=== PATIENT | female | born 1990 | race African-American/Black ===

== ENCOUNTER 2021-03-11 20:45 | Emergency (ER) | payer BC, MEDICAID ==
[~2021-03-11] VITALS: Ht 180.3 cm; Wt 89.2 kg
[~2021-03-11 20:45] MED LIST: NONE REPORTED
[2021-03-11 21:03] VITALS: BP 105/61
[2021-03-11] MEDS ORDERED: ACETAMINOPHEN 325MG TABLET PO ONE (21:30)
[2021-03-11] MEDS ORDERED: PRENATAL VITAMINS (23:34)
[2021-03-11] MEDS ORDERED: FOLIC ACID (23:34)
== END 2021-03-11 22:12 | disposition home or self-care (01) ==
LOC: ER 20:45
DX: B34.9 Viral infection, unspecified (principal); Z20.822 Contact with and (suspected) exposure to COVID-19
CPT/HCPCS: 87426; 87804; 99283; C9803; U0003; U0005

== ENCOUNTER 2021-03-11 22:30 | Observation (INO) | payer MEDICAID ==
[~2021-03-11] VITALS: Ht 180.3 cm; Wt 88.9 kg
[2021-03-11] MEDS ORDERED: FOLIC ACID (23:34)
[2021-03-11] MEDS ORDERED: PRENATAL VITAMINS (23:34)
== END 2021-03-12 00:06 | disposition home or self-care (01) ==
LOC: 8 EST LDRP 22:30
PROVIDERS: ADMIT Specialist; ATTEND Specialist
DX: O26.893 Other specified pregnancy related conditions, third trimester (principal); J02.9 Acute pharyngitis, unspecified; R10.9 Unspecified abdominal pain; O99.891 Other specified diseases and conditions complicating pregnancy; M54.9 Dorsalgia, unspecified; Z3A.30 30 weeks gestation of pregnancy
CPT/HCPCS: 59025; G0378; 99281

== ENCOUNTER 2021-05-09 23:35 | Inpatient (IN) | payer MEDICAID ==
[~2021-05-09] VITALS: Ht 11 cm; Wt 89.8 kg
[~2021-05-09 23:35] MED LIST changes: +FOLIC ACID; -NONE REPORTED; +PRENATAL VITAMINS
[2021-05-10] MEDS ORDERED: RHO(D) IMMUNE GLOBULIN 300 MCG/SYR IM ONE (00:30)
[2021-05-10] MEDS ORDERED: LIDOCAINE HCL 1% 20ML VIAL (Pyxis) INJ INFIL SCH (00:30)
[2021-05-10] MEDS ORDERED: LACTATED RINGERS 1,000 ML IV SCH (00:30)
[2021-05-10] MEDS ORDERED: DEXT 5%/LR + PITOCIN 20UNITS/L 1,000 ML IV SCH ×2 (00:30→02:45)
[2021-05-10] MEDS ORDERED: PENICILLIN G POTASSIUM 5 MMU in DEXT 5% WATER 100 ML IV SCH (01:00)
[2021-05-10 01:13] LABS: BASOPHILS % 0.5 % (0.0-2.0); EOSINOPHILS % 2.9 % (0.0-5.0); HEMATOCRIT. 23.7 % (36.0-48.0); HEMOGLOBIN. 7.5 g/dL (12.0-16.0); LYMPHOCYTES % 20.4 % (20.0-50.0); MEAN CORPUSCULAR HEMOGLOBIN 20.8 pg (28.0-32.0); MEAN CORPUSCULAR VOLUME 65.6 fL (81.0-99.0); MEAN PLATELET VOLUME 8.5 fl (7.4-10.4); MONOCYTES % 9.1 % (2.0-8.0); NEUTROPHILS % 67.1 % (40.0-76.0); PLATELET 169 x1000/uL (130-400); RED BLOOD CELL COUNT 3.61 mill/uL (4.2-5.4); RED CELL DISTRIBUTION WIDTH 19.5 % (11.6-14.6)
[2021-05-10 01:21] LABS: PARTIAL THROMBOPLASTIN TIME 26.3 sec (23.4-31.0); PROTHROMBIN TIME 10.7 sec (9.6-11.0)
[2021-05-10 02:31] LABS: HEPATITIS B SURFACE ANTIGEN NEGATIVE
[2021-05-10] MEDS ORDERED: LANOLIN OINT 7GM TUBE TOP PRN (02:45)
[2021-05-10] MEDS ORDERED: BENZOCAINE/LANOLIN/ALOE VERA SPRAY TOP PRN (02:45)
[2021-05-10] MEDS ORDERED: DIPHENHYDRAMINE 25MG CAPSULE PO PRN (02:45)
[2021-05-10] MEDS ORDERED: GLYCERIN/WITCH HAZEL LEAF MEDICATED PAD TOP PRN (02:45)
[2021-05-10] MEDS ORDERED: RHO(D) IMMUNE GLOBULIN 300 MCG/SYR IM PRN (02:45)
[2021-05-10] MEDS ORDERED: ACETAMINOPHEN WITH CODEINE 300/30MG TABLET PO PRN ×2 (02:45)
[2021-05-10] MEDS ORDERED: HEMORRHOIDAL SUPP PR PRN (02:45)
[2021-05-10] MEDS ORDERED: BISACODYL 10MG SUPP PR PRN (02:45)
[2021-05-10 03:10] LABS: CLARITY URINE CLEAR (CLEAR); COLOR URINE ORANGE (YELLOW); KETONES URINE 1+ (NEGATIVE); LEUKOCYTE ESTERASE URINE TRACE (NEGATIVE); NITRITE URINE NEGATIVE (NEGATIVE); OCCULT BLOOD URINE 3+ (NEGATIVE); PROTEIN URINE NEGATIVE (NEGATIVE); SPECIFIC GRAVITY URINE 1.016 (1.005-1.030); UROBILINOGEN URINE 0.2 E.U./dL (0.2-1.0)
[2021-05-10] MEDS: IBUPROFEN 400MG TABLET PO PRN (03:13)
[2021-05-10 03:18] LABS: *AMPHETAMINES SCREEN URINE NEGATIVE (NEGATIVE); *BARBITURATES SCREEN URINE NEGATIVE (NEGATIVE); *BENZODIAZEPINES SCREEN URINE NEGATIVE (NEGATIVE); *COCAINE SCREEN URINE NEGATIVE (NEGATIVE)
[2021-05-10 03:19] LABS: CANNABINOID URINE SCREEN NEGATIVE (NEGATIVE); METHADONE URINE SCREEN NEGATIVE (NEGATIVE); OPIATES URINE SCREEN NEGATIVE (NEGATIVE); PHENCYCLIDINE URINE SCREEN NEGATIVE (NEGATIVE)
[2021-05-10 03:20] VITALS: BP 125/76
[2021-05-10 04:45] LABS: PLATELET ESTIMATE NORMAL
[2021-05-10] MEDS ORDERED: PENICILLIN G POTASSIUM 2.5 MMU in DEXTROSE 5% WATER 50 ML IV SCH (05:00)
[2021-05-10] MEDS: MAGNESIUM/ALUMINUM HYDROXIDE/SIMETHICONE 30ML UDC PO SCH ×3 (07:30→17:30)
[2021-05-10 07:45] VITALS: BP 123/71
[2021-05-10] MEDS: SIMETHICONE 80MG TABLET CHEW PO SCH ×3 (08:00→18:00)
[2021-05-10] MEDS ORDERED: METHYLERGONOVINE MALEATE 0.2 MG/ML ONE (08:17)
[2021-05-10] MEDS: PRENATAL VIT/FE FUMARATE/FA TABLET PO SCH (09:11)
[2021-05-10 15:45] VITALS: BP 108/61
[2021-05-10 19:45] VITALS: BP 122/58
[2021-05-10] MEDS ORDERED: DOCUSATE SODIUM 100MG CAPSULE PO SCH (21:00)
[2021-05-11] MEDS: IBUPROFEN 400MG TABLET PO PRN ×2 (02:44→08:59)
[2021-05-11 03:00] VITALS: BP 124/62
[2021-05-11 07:02] LABS: BASOPHILS % 0.6 % (0.0-2.0); EOSINOPHILS % 2.4 % (0.0-5.0); HEMOGLOBIN. 7.3 g/dL (12.0-16.0); LYMPHOCYTES % 18.4 % (20.0-50.0); MEAN CORPUSCULAR HEMOGLOBIN 20.5 pg (28.0-32.0); MEAN CORPUSCULAR VOLUME 64.9 fL (81.0-99.0); MEAN PLATELET VOLUME 8.5 fl (7.4-10.4); MONOCYTES % 8.8 % (2.0-8.0); NEUTROPHILS % 69.8 % (40.0-76.0); PLATELET 179 x1000/uL (130-400); RED BLOOD CELL COUNT 3.55 mill/uL (4.2-5.4); RED CELL DISTRIBUTION WIDTH 19.1 % (11.6-14.6)
[2021-05-11] MEDS ORDERED: FERROUS SULFATE 325MG TABLET PO SCH (07:30)
[2021-05-11 08:30] VITALS: BP 112/64
[2021-05-11] MEDS: MAGNESIUM/ALUMINUM HYDROXIDE/SIMETHICONE 30ML UDC PO SCH (08:58)
[2021-05-11] MEDS: PRENATAL VIT/FE FUMARATE/FA TABLET PO SCH (08:59)
[2021-05-11] MEDS: SIMETHICONE 80MG TABLET CHEW PO SCH (09:00)
== END 2021-05-11 10:00 | disposition home or self-care (01) | DRG 560 ==
LOC: 8 EST LDRP 23:35 → OBSVTOIN 23:35 → 8EST 05-10 03:20
PROVIDERS: ADMIT Specialist; ATTEND Specialist
PROC: 0KQM0ZZ Repair Perineum Muscle, Open Approach (ICD-10-PCS; principal; 2021-05-10)
PROC: 10E0XZZ Delivery of Products of Conception, External Approach (ICD-10-PCS; 2021-05-10)
DX: O70.1 Second degree perineal laceration during delivery (principal); Z37.0 Single live birth; O72.1 Other immediate postpartum hemorrhage; Z3A.39 39 weeks gestation of pregnancy
CPT/HCPCS: 36415; 80051; 80305; 81003; 85025; 86592; 86703; 86762; 86850; 86900; 87340; 99281; C1893; J2210; J2540; J2590; J3490; J7060